=== PATIENT | female | born 1975 | race Caucasian/White ===

== ENCOUNTER 2019-11-28 09:15 | Emergency (ER) | payer MEDICAID ==
[2019-11-28] MEDS ORDERED: cefTRIAXone 1 GM VIAL ONE (10:24)
[2019-11-28] MEDS ORDERED: LIDOCAINE 1%, 20 ML MDV 20 ML ONE (10:24)
== END 2019-11-28 10:18 | disposition home or self-care (01) ==
LOC: SED 09:15
DX: N12 Tubulo-interstitial nephritis, not specified as acute or chronic (principal)
CPT/HCPCS: 96372; 99283; J0696; J2001